=== PATIENT | male | born 1960 | race American Indian/Alaskan Native ===

== ENCOUNTER 2017-01-03 09:02 | Outpatient (CLI) | payer OTHER ==
--- NOTE | 2017-01-03 10:02 | Ultrasound Report ---
ULTRASOUND ABDOMEN COMPLETE: Technique: Transabdominal ultrasound with color Doppler interrogation. History: Hepatitis C, abnormal results of liver. Findings: The liver is normal size, contour and echotexture. The gallbladder dimensions are within normal limits without intraluminal stone, wall thickening, or pericholecystic fluid. The CBD is normal caliber. The visualized portions of the pancreas including the head and proximal body are within normal limits. The kidneys demonstrate no hydronephrosis or mass. Cortical thickness and echogenicity are within normal limits bilaterally. The spleen and aorta are within normal limits. No aneurysmal dilatation is noted. No ascites. The bladder is unremarkable. IMPRESSION: Unremarkable abdominal ultrasound.
== END 2017-01-03 09:03 | disposition home or self-care (01) ==
LOC: US 09:02
PROVIDERS: ATTEND Internal Medicine Gastroenterology
DX: B18.2 Chronic viral hepatitis C (principal); R94.5 Abnormal results of liver function studies
CPT/HCPCS: 76700

== ENCOUNTER 2017-01-22 07:07 | Outpatient (CLI) | payer OTHER ==
[2017-01-22 08:09] LABS: Blood Urea Nitrogen 15 mg/dL (9-20)
--- NOTE | 2017-01-22 10:50 | Magnetic Resonance Report ---
MRI of the abdomen with and without contrast. History: Abnormal liver function tests. Procedure: Multiplanar multisequence study was performed with and without contrast. Findings: The liver is normal in size and configuration and the contour of the liver is normal. There is a 4.6 mm cyst in the superior aspect of the right lobe of the liver. No other focal hepatic abnormalities are seen. The portal vein is patent. The spleen is normal in size and configuration with no focal abnormalities. The pancreas is normal. There is no dilatation of the pancreatic duct. The kidneys are normal in size and configuration. A sub-centimeter cyst is seen in the anterior cortex of the right kidney. The left kidney is normal. No adenopathy is seen within the retroperitoneum. No abnormal fluid collections are seen. After contrast administration, there are no abnormal areas of enhancement in the liver or the other abdominal viscera. Impression: Essentially negative study with a subcentimeter cyst seen in the liver and right kidney.
== END 2017-01-22 07:08 | disposition home or self-care (01) ==
LOC: MRI 07:07
PROVIDERS: ATTEND Internal Medicine Gastroenterology
DX: B18.2 Chronic viral hepatitis C (principal); R94.5 Abnormal results of liver function studies; N28.1 Cyst of kidney, acquired; K76.89 Other specified diseases of liver
CPT/HCPCS: 36415; 74183; 82565; 84520; A9577